=== PATIENT | male | born 1960 | race Caucasian/White ===

== ENCOUNTER 2018-01-28 15:37 | Emergency (ER) | payer MEDICAID ==
[~2018-01-28 15:37] MED LIST changes: -BACL-1 PO; -HYDR-385 PO; -PRED20TA6 PO
--- NOTE | 2018-01-28 15:48 | ER Report ---
History and Physical Time Seen By MD: 15:48 Hx. of Stated Complaint: Patient brought from [facility] for possible unresponsiveness. Patient brought by EMS. Responsive. Slow to answer questions. HPI/ROS CHIEF COMPLAINT: Slow response HISTORY OF PRESENT ILLNESS: 57-year-old male patient presents to emergency room with complaint of having slow response. Patient went to the [facility]. While he was there patient was very slow to respond to any questions. Most often he would answer yes no. Patient did complain of back pain according to the note that was faxed over from the clinic, however they were not able to get any other information. Patient here in the emergency room will answer yes no questions, he will watch as I move around. REVIEW OF SYSTEMS: Respiratory: No cough, no dyspnea. Cardiovascular: No chest pain, no palpitations. Gastrointestinal: No vomiting, no abdominal pain. Musculoskeletal: As noted above Allergies: Coded Allergies: No Known Drug Allergies (Unverified , 01/28/18) Home Meds Active Scripts Prednisone (PREDNISONE) 20 Mg Tablet, 40 MG PO DAILY, #8 TAB Prov:TOBY CAMP [facility] 01/28/18 Baclofen (BACLOFEN) 10 Mg Tablet, 10 MG PO TID, #20 TAB Prov:TOBY CAMP [facility] 01/28/18 Hydrocodone Bit/Acetaminophen (HYDROCODON-ACETAMINOPHEN 5-325) 1 Each Tablet, 1 EACH PO Q4-6H Y for PAIN, #12 TAB Prov:TOBY CAMP [facility] 01/28/18 Reported Medications Fluoxetine Hcl (PROZAC) 10 Mg Capsule, 10 MG PO QDAY, CAPSULE 08/14/17 Nicotine Polacrilex (NICOTINE GUM) 2 Mg Gum, 2 MG BC Q1-2H Y for NICOTINE REPLACEMENT, GUM 08/14/17 Multivits,Th W-Fe,Other Min (THERA-M) 1 Each Tablet, 1 EACH PO QDAY 08/14/17 Tiotropium [place] (SPIRIVA) 18 Mcg/Cap Inh, 18 MCG INH, INH 08/12/17 Simvastatin (SIMVASTATIN) 40 Mg Tablet, 40 MG PO HS, TAB ZOCOR 08/12/17 Hydroxyzine Hcl (HYDROXYZINE HCL) 25 Mg Tablet, 75 MG PO Y for INSOMNIA VISTARIL. TAKE NEEDED FOR INSOMNIA. 08/12/17 Lurasidone Hcl (LATUDA) 40 Mg Tablet, 40 MG PO TAKE DAILY AT 5 PM. TAKE WITH FOOD. 08/12/17 Past Medical/Surgical History Patient has a past medical history of hyperlipidemia, COPD, schizophrenia. Patient has no pertinent surgical history. Unable To Obtain Past Medical: Unable to Obtain/Update Reviewed Nurses Notes: Yes Hx Smoking: Yes Smoking Status: Current: Every Day Smoker Exposure to Second Hand Smoke?: Yes Hx Substance Use Disorder: No Hx Alcohol Use: No Constitutional Vital Sign - Last 24 Hours 01/28/18 01/28/18 01/28/18 01/28/18 15:38 15:45 16:00 16:15 Temp 97.6 Pulse 88 76 76 53 Resp 24 35 14 10 B/P (MAP) 125/106 113/97 (102) Pulse Ox 96 96 96 94 O2 Delivery Room Air 01/28/18 01/28/18 01/28/18 16:30 16:32 17:00 Pulse 59 49 Resp 16 14 B/P (MAP) 130/88 (102) 134/95 (108) Pulse Ox 97 97 O2 Flow Rate 2.0 Intake and Output 01/28/18 01/28/18 01/29/18 15:00 23:00 07:00 Intake Total 1700 ml Output Total 200 ml Balance 1500 ml Physical Exam General Appearance: The patient is alert, has no immediate need for airway protection and no current signs of toxicity. Respiratory: Chest is non tender, lungs are clear to auscultation. Cardiac: regular rate and rhythm Gastrointestinal: Abdomen is soft and non tender, no masses, bowel sounds normal. Musculoskeletal: Neck: Neck is supple and non tender. Extremities have full range of motion and are non tender. Back: Patient has tenderness in the low back, there is no bruising, pain seems radiate to the left hip. Skin: No rashes or lesions. Neuro: Patient is alert, difficult to ascertain his orientation as he is only answering yes no questions at this time. DIFFERENTIAL DIAGNOSIS: After history and physical exam differential diagnosis was considered for back pain with radiculopathy, psychosis, noncompliance with psych meds. Medical Decision Making Data Points Result Diagram: 01/28/18 1530 01/28/18 1530 Laboratory Hematology Test 01/28/18 15:30 01/28/18 16:14 01/28/18 17:39 Red Blood Count 5.72 M/uL (4.00-5.60) Mean Corpuscular Volume 85.4 fL (80.0-96.0) Mean Corpuscular Hemoglobin 29.8 pg (26.0-33.0) Mean Corpuscular Hemoglobin Concent 34.9 g/dL (32.0-36.0) Red Cell Distribution Width 13.9 % (11.5-14.5) Mean Platelet Volume 9.0 fL (7.2-11.1) Neutrophils (%) (Auto) 49.1 % (39.4-72.5) Lymphocytes (%) (Auto) 39.8 % (17.6-49.6) Monocytes (%) (Auto) 8.7 % (4.1-12.4) Eosinophils (%) (Auto) 1.5 % (0.4-6.7) Basophils (%) (Auto) 0.9 % (0.3-1.4) Nucleated RBC Relative Count (auto) 0.1 /100WBC Neutrophils # (Auto) 5.3 K/uL (2.0-7.4) Lymphocytes # (Auto) 4.3 K/uL (1.3-3.6) Monocytes # (Auto) 0.9 K/uL (0.3-1.0) Eosinophils # (Auto) 0.2 K/uL (0.0-0.5) Basophils # (Auto) 0.1 K/uL (0.0-0.1) Nucleated RBC Absolute Count (auto) 0.01 K/uL Sodium Level 143 mmol/L (137-145) Potassium Level 4.0 mmol/L (3.5-5.0) Chloride Level 106 mmol/L (98-107) Carbon Dioxide Level 21 mmol/L (22-30) Blood Urea Nitrogen 15 mg/dl (9-21) Creatinine 0.90 mg/dl (0.66-1.25) Glomerular Filtration Rate Calc > 60.0 Random Glucose 101 mg/dl (75-110) Calcium Level 10.5 mg/dl (8.4-10.2) Magnesium Level 2.2 mg/dl (1.7-2.2) Total Bilirubin 0.7 mg/dl (0.2-1.3) Aspartate Amino Transf (AST/SGOT) 42 U/L (0-35) Alanine Aminotransferase (ALT/SGPT) 52 U/L (0-56) Alkaline Phosphatase 67 U/L (0-126) Ammonia < 9 UMOL/L (9-33) Troponin I < 0.012 ng/ml Total Protein 8.6 gm/dl (6.3-8.2) Albumin 4.9 g/dl (3.5-5.0) Salicylates Level < 10 mg/L Salicylate Last Dose Date unk Acetaminophen Level < 10 ug/ml Serum Alcohol < 10 mg/dl Blood Gas Puncture Site Right radial Blood Gas Patient Temperature 97.6 DEGREES Arterial Blood pH 7.52 (7.35-7.45) Arterial Blood Partial Pressure CO2 < 25 mmHg (32-37) Arterial Blood Partial Pressure O2 60 mmHg (60-80) Arterial Blood HCO3 16 mmol/L (20-26) Arterial Blood Oxygen Saturation 94 % (92-100) Arterial Blood Base Excess -7.0 mmol/L Josh Test Acceptable Oxygen Liters/Minute Room air Urine Color Christen Urine Clarity Clear Urine pH 6.0 pH (4.8-9.5) Urine Specific [place] 1.031 Urine Protein 30 mg/dL (NEGATIVE) Urine Glucose (UA) Negative mg/dL (NEGATIVE) Urine Ketones 20 mg/dL (NEGATIVE) Urine Blood Negative (NEGATIVE) Urine Nitrite Negative (NEGATIVE) Urine Bilirubin Negative (NEGATIVE) Urine Urobilinogen 4.0 mg/dL (0.2-1.9) Urine Leukocyte Esterase Negative (NEGATIVE) Urine RBC 1 /HPF (0-2/HPF) Urine WBC 1 /HPF (0-5/HPF) Urine Squamous Epithelial Cells None /LPF (NONE-FEW) Urine Bacteria Negative /HPF (NONE-FEW) Urine Mucus None /HPF (NONE-FEW) Urine Opiates Screen Negative Urine Barbiturates Screen Negative Ur Tricyclic Antidepressants Screen Negative Urine Phencyclidine Screen Negative Urine Amphetamines Screen Negative Urine Benzodiazepines Screen Negative Urine Cocaine Screen Negative Urine Cannabinoids Screen Positive Chemistry Test 01/28/18 15:30 01/28/18 16:14 01/28/18 17:39 White Blood Count 10.7 k/uL (4.5-11.0) Red Blood Count 5.72 M/uL (4.00-5.60) Hemoglobin 17.0 g/dL (14.0-18.0) Hematocrit 48.8 % (42.0-52.0) Mean Corpuscular Volume 85.4 fL (80.0-96.0) Mean Corpuscular Hemoglobin 29.8 pg (26.0-33.0) Mean Corpuscular Hemoglobin Concent 34.9 g/dL (32.0-36.0) Red Cell Distribution Width 13.9 % (11.5-14.5) Platelet Count 408 K/uL (150-450) Mean Platelet Volume 9.0 fL (7.2-11.1) Neutrophils (%) (Auto) 49.1 % (39.4-72.5) Lymphocytes (%) (Auto) 39.8 % (17.6-49.6) Monocytes (%) (Auto) 8.7 % (4.1-12.4) Eosinophils (%) (Auto) 1.5 % (0.4-6.7) Basophils (%) (Auto) 0.9 % (0.3-1.4) Nucleated RBC Relative Count (auto) 0.1 /100WBC Neutrophils # (Auto) 5.3 K/uL (2.0-7.4) Lymphocytes # (Auto) 4.3 K/uL (1.3-3.6) Monocytes # (Auto) 0.9 K/uL (0.3-1.0) Eosinophils # (Auto) 0.2 K/uL (0.0-0.5) Basophils # (Auto) 0.1 K/uL (0.0-0.1) Nucleated RBC Absolute Count (auto) 0.01 K/uL Glomerular Filtration Rate Calc > 60.0 Calcium Level 10.5 mg/dl (8.4-10.2) Magnesium Level 2.2 mg/dl (1.7-2.2) Total Bilirubin 0.7 mg/dl (0.2-1.3) Aspartate Amino Transf (AST/SGOT) 42 U/L (0-35) Alanine Aminotransferase (ALT/SGPT) 52 U/L (0-56) Alkaline Phosphatase 67 U/L (0-126) Ammonia < 9 UMOL/L (9-33) Troponin I < 0.012 ng/ml Total Protein 8.6 gm/dl (6.3-8.2) Albumin 4.9 g/dl (3.5-5.0) Salicylates Level < 10 mg/L Salicylate Last Dose Date unk Acetaminophen Level < 10 ug/ml Serum Alcohol < 10 mg/dl Blood Gas Puncture Site Right radial Blood Gas Patient Temperature 97.6 DEGREES Arterial Blood pH 7.52 (7.35-7.45) Arterial Blood Partial Pressure CO2 < 25 mmHg (32-37) Arterial Blood Partial Pressure O2 60 mmHg (60-80) Arterial Blood HCO3 16 mmol/L (20-26) Arterial Blood Oxygen Saturation 94 % (92-100) Arterial Blood Base Excess -7.0 mmol/L Josh Test Acceptable Oxygen Liters/Minute Room air Urine Color Christen Urine Clarity Clear Urine pH 6.0 pH (4.8-9.5) Urine Specific [place] 1.031 Urine Protein 30 mg/dL (NEGATIVE) Urine Glucose (UA) Negative mg/dL (NEGATIVE) Urine Ketones 20 mg/dL (NEGATIVE) Urine Blood Negative (NEGATIVE) Urine Nitrite Negative (NEGATIVE) Urine Bilirubin Negative (NEGATIVE) Urine Urobilinogen 4.0 mg/dL (0.2-1.9) Urine Leukocyte Esterase Negative (NEGATIVE) Urine RBC 1 /HPF (0-2/HPF) Urine WBC 1 /HPF (0-5/HPF) Urine Squamous Epithelial Cells None /LPF (NONE-FEW) Urine Bacteria Negative /HPF (NONE-FEW) Urine Mucus None /HPF (NONE-FEW) Urine Opiates Screen Negative Urine Barbiturates Screen Negative Ur Tricyclic Antidepressants Screen Negative Urine Phencyclidine Screen Negative Urine Amphetamines Screen Negative Urine Benzodiazepines Screen Negative Urine Cocaine Screen Negative Urine Cannabinoids Screen Positive Toxicology Test 01/28/18 15:30 01/28/18 17:39 Salicylates Level < 10 mg/L Salicylate Last Dose Date unk Acetaminophen Level < 10 ug/ml Serum Alcohol < 10 mg/dl Urine Opiates Screen Negative Urine Barbiturates Screen Negative Ur Tricyclic Antidepressants Screen Negative Urine Phencyclidine Screen Negative Urine Amphetamines Screen Negative Urine Benzodiazepines Screen Negative Urine Cocaine Screen Negative Urine Cannabinoids Screen Positive Urinalysis Test 01/28/18 17:39 Urine Color Christen Urine Clarity Clear Urine pH 6.0 pH (4.8-9.5) Urine Specific [place] 1.031 Urine Protein 30 mg/dL (NEGATIVE) Urine Glucose (UA) Negative mg/dL (NEGATIVE) Urine Ketones 20 mg/dL (NEGATIVE) Urine Blood Negative (NEGATIVE) Urine Nitrite Negative (NEGATIVE) Urine Bilirubin Negative (NEGATIVE) Urine Urobilinogen 4.0 mg/dL (0.2-1.9) Urine Leukocyte Esterase Negative (NEGATIVE) Urine RBC 1 /HPF (0-2/HPF) Urine WBC 1 /HPF (0-5/HPF) Urine Squamous Epithelial Cells None /LPF (NONE-FEW) Urine Bacteria Negative /HPF (NONE-FEW) Urine Mucus None /HPF (NONE-FEW) EKG/Imaging Imaging EXAMINATION: CT HEAD WITHOUT CONTRAST COMPARISON: None available HISTORY: Altered mental status. PROCEDURE: Noncontrast CT from the vertex through the skull base. One of the following dose optimization techniques was utilized in the performance of this exam: Automated exposure control; adjustment of the mA and/or kV according to the patient's size; or use of an iterative reconstruction technique. Specific details can be referenced in the facility's radiology CT exam operational policy. FINDINGS: Brain volume: Age-appropriate. Hemorrhage/extra-axial fluid: None. Mass effect/midline shift/edema: None. Ischemia: Mejia-white differentiation is preserved. Ventricles and basal cisterns: Within normal limits. Posterior fossa: Negative. Vessels: Carotid atherosclerosis. Calvarium, skull base, and scalp: Negative. Visualized sinuses and orbits: Within normal limits. IMPRESSION: 1. No intracranial hemorrhage or mass effect. 2. No CT findings of acute ischemia. Report Dictated By: Alessandro Kapoor MD at 01/28/2018 4:59 PM Report E-Signed By: Alessandro Kapoor MD at 01/28/2018 5:03 PM ED Course/Re-evaluation ED Course Patient was admitted in exam room, history and physical were obtained. Differential diagnoses were considered. On examination patient was not responsive for anything more than yes or no questions. A CBC, CMP, urinalysis, drug screen, CT scan of the head were done. After those are done the results were unremarkable. Patient states that he was having significant pain to his back and left hip. X-rays ordered of the lumbar spine and left hip. After that the patient was still complaining of pain. He was given 4 mg of morphine IM. On reevaluation patient was interactive, he was talking. Patient states the reason he was not communicating initially was because he was having some much pain. Patient states his pain is significant better. We will go ahead and discharge him home at this time. With the x-rays of his back he does have significant degeneration at L6. I would like him to follow-up with Dr. Roman as this is apparently an acute exacerbation of chronic back pain. Patient will be treated with a limited supply of pain medication, muscle relaxer and steroid. Patient verbalized understanding and agreement with plan. Decision to Disposition Date: January 28, 2018 Decision to Disposition Time: 20:07 Depart Departure Latest Vital Signs Vital Signs Date Time Temp Pulse Resp B/P (MAP) Pulse Ox O2 Delivery O2 Flow Rate FiO2 01/28/18 17:00 49 14 134/95 (108) 97 01/28/18 16:32 2.0 01/28/18 15:38 97.6 Room Air Impression: Primary Impression: Back pain Condition: Improved Disposition: HOME OR SELF-CARE Referrals: STEPHEN BROWN MD (PCP) LEXI ROMAN MD New Scripts Prednisone (PREDNISONE) 20 Mg Tablet 40 MG PO DAILY, #8 TAB Prov: TOBY CAMP 01/28/18 Baclofen (BACLOFEN) 10 Mg Tablet 10 MG PO TID, #20 TAB Prov: TOBY CAMP 01/28/18 Hydrocodone Bit/Acetaminophen (HYDROCODON-ACETAMINOPHEN 5-325) 1 Each Tablet 1 EACH PO Q4-6H Y for PAIN, #12 TAB Prov: TOBY CAMP 01/28/18 Patient Instructions: Acute Low Back Pain (ED) Additional Instructions: Limit activity by pain. Alternate ice and heat. Follow up with Dr. Roman at [facility]. Increase low impact aerobic activity. Follow up with your primary care provider in the next 1-2 weeks. Problem Qualifiers Primary Impression: Back pain Back pain location: low back pain Chronicity: acute Back pain laterality: left Sciatica presence: with sciatica Sciatica laterality: sciatica of left side Qualified Codes: M54.42 - Lumbago with sciatica, left side TOBY CAMP January 28, 2018 15:48
[2018-01-28] MEDS ORDERED: NS(*) 0.9% 1000 ML BAG 1,000 ML IV ONE ×2 (15:57→17:35)
[2018-01-28 16:11] LABS: PLATELET COUNT, AUTOMATED 408 K/uL (150-450)
--- NOTE | 2018-01-28 16:16 | EKG ---
FACILITY: [facility] PATIENT NAME: MARISSA THORNE : [id number] MR: [id number] V: [id number] EXAM DATE: ORDERING PHYSICIAN: TOBY CAMP TECHNOLOGIST: JOSÉ Test Reason : AMS Blood Pressure : / mmHG Vent. Rate : 055 BPM Atrial Rate : 055 BPM P-R Int : 144 ms QRS Dur : 088 ms QT Int : 474 ms P-R-T Axes : 077 070 068 degrees QTc Int : 453 ms Sinus bradycardia Otherwise normal ECG No previous ECGs available Confirmed by CRIS LOCKETT ([id number]) on 01/28/2018 8:05:03 PM Referred By: CHRISTIANE Confirmed By:CRIS LOCKETT
[2018-01-28 17:00] VITALS: BP 134/95
--- NOTE | 2018-01-28 17:07 | RADIOLOGY IMAGING REPORT ---
FACILITY: [facility] PATIENT NAME: Rom Islas : 1960 MR: [id number] V: [id number] EXAM DATE: ORDERING PHYSICIAN: TOBY CAMP TECHNOLOGIST: Location: [facility] [place] Patient: Rom Islas : 1960 Visit/Account:[id number] Date of Sevice: 01/28/2018 EXAMINATION: CT HEAD WITHOUT CONTRAST COMPARISON: None available HISTORY: Altered mental status. PROCEDURE: Noncontrast CT from the vertex through the skull base. One of the following dose optimizat ion techniques was utilized in the performance of this exam: Automated exposure control; adjustment o f the mA and/or kV according to the patient's size; or use of an iterative reconstruction technique. Specific details can be referenced in the facility's radiology CT exam operational policy. FINDINGS: Brain volume: Age-appropriate. Hemorrhage/extra-axial fluid: None. Mass effect/midline shift/edema: None. Ischemia: Mejia-white differentiation is preserved. Ventricles and basal cisterns: Within normal limits. Posterior fossa: Negative. Vessels: Carotid atherosclerosis. Calvarium, skull base, and scalp: Negative. Visualized sinuses and orbits: Within normal limits. IMPRESSION: 1. No intracranial hemorrhage or mass effect. 2. No CT findings of acute ischemia. Report Dictated By: Alessandro Kapoor MD at 01/28/2018 4:59 PM Report E-Signed By: Alessandro Kapoor MD at 01/28/2018 5:03 PM WSN:[id number]
[2018-01-28] MEDS ORDERED: MORPHINE 4 MG/ML SDV IVP ONE (19:00)
[2018-01-28] MEDS ORDERED: MORPHINE 4 MG/ML SDV IV ONE (19:10)
--- NOTE | 2018-01-28 19:43 | RADIOLOGY IMAGING REPORT ---
FACILITY: [facility] - [place] PATIENT NAME: Rom Islas : 1960 MR: [id number] V: [id number] EXAM DATE: ORDERING PHYSICIAN: TOBY CAMP TECHNOLOGIST: Location: [facility] [place] Patient: Rom Islas : 1960 Visit/Account:[id number] Date of Sevice: 01/28/2018 EXAMINATION: Lumbar Spine 4 views HISTORY: Back pain. COMPARISON: None. FINDINGS: There are 6 nonrib-bearing lumbar-type vertebral segments. There is a mild convex-left lumbar curve, measuring less than 10 degrees, with apex at L3-L4. Multilevel spondylotic changes in the lumbar spine. There is severe disc space narrowing at the lumbosacral interspace, with grade 1-2 spondylolisthesis of L6 on S1 measuring approximately 10 mm. 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 Mild disc space narrowing at the L4-L5 and L5-L6 interspaces, mild multilevel degenerative endplate c hanges. No evidence of acute fracture or subluxation the lumbar spine. Vertebral body height is maintained. Vascular calcifications. IMPRESSION: 1. No acute osseous findings in the lumbar spine. 2. Likely bilateral spondylolysis at L6, with associated grade 1-2 spondylolisthesis of L6 on S1. 3. Mild degenerative changes at the other lumbar levels. 4. Mild convex-left lumbar curve. Report Dictated By: Otilio Medeiros MD at 01/28/2018 7:33 PM Report E-Signed By: Otilio Medeiros MD at 01/28/2018 7:40 PM WSN:[id number]
--- NOTE | 2018-01-28 19:45 | RADIOLOGY IMAGING REPORT ---
FACILITY: [facility] [place] PATIENT NAME: Rom Islas : 1960 MR: [id number] V: [id number] EXAM DATE: ORDERING PHYSICIAN: TOBY CAMP TECHNOLOGIST: [place] [facility] [place]: Rom Islas : 1960 Visit/Account:[id number] Date of Sevice: 01/28/2018 EXAMINATION: Left hip 2 views HISTORY: Back pain. COMPARISON: None. FINDINGS: Bones of the left hip demonstrate normal alignment. No evidence of fracture or dislocation. The joint space is preserved. Remainder of the bony pelvis appears radiographically intact. Normal mineralization. IMPRESSION: Negative left hip. Report Dictated By: Otilio Medeiros MD at 01/28/2018 7:40 PM Report E-Signed By: Otilio Medeiros MD at 01/28/2018 7:41 PM WSN:[id number]
[2018-01-28] MEDS ORDERED: predniSONE 20 MG TAB PO ONE (20:00)
[2018-01-28] MEDS ORDERED: BACLOFEN 10 MG TAB PO ONE (20:00)
[2018-01-28] MEDS ORDERED: ACET/HYDROC 5/325MG TH ER ONLY 2 TAB/BOTTLE PO ONE (20:00)
[2018-01-28] MEDS ORDERED: BACL-1 PO (20:06)
[2018-01-28] MEDS ORDERED: HYDR-385 PO (20:06)
[2018-01-28] MEDS ORDERED: PRED20TA6 PO (20:06)
== END 2018-01-28 20:17 | disposition home or self-care (01) ==
LOC: ER 15:42
DX: M54.42 Lumbago with sciatica, left side (principal); E78.5 Hyperlipidemia, unspecified; J44.9 Chronic obstructive pulmonary disease, unspecified
CPT/HCPCS: 36600; 70450; 72120; 73502; 80305; 81001; 82140; 82803; 83735; 84443; 84484; 85025; 93005; 96360; 96361; 99284; G0480; J2270; J7030; J7512; 80320; 80329; 82040; 82247; 82310; 82374; 82435; 82565; 82947; 84075; 84132; 84155; 84295; 84450; 84460; 84520

== ENCOUNTER → 2018-01-28 | Outpatient (CLI) | payer MEDICAID ==
[~2018-01-28] MED LIST: BACL-1 PO; FLUO-177 PO; FLUO-201 PO; HYDR-385 PO; HYDR-4225 PO; LURA40TA3 PO; MULT-1379 PO; NICO-306 BC; POTA20TA94 PO; PRED20TA6 PO; SIMV-54 PO; TIO18R INH
== END ==
LOC: AMB 15:17
PROVIDERS: ATTEND Nurse Practitioner
DX: R41.82 Altered mental status, unspecified (principal); M54.9 Dorsalgia, unspecified
CPT/HCPCS: A0425; A0427

== ENCOUNTER → 2018-10-07 | Outpatient (CLI) | payer MEDICAID ==
[~2018-10-07] MED LIST changes: +BACL-1 PO; +HYDR-385 PO; +PRED20TA6 PO
--- NOTE | 2018-10-07 15:28 | RADIOLOGY IMAGING REPORT ---
FACILITY: [facility] PATIENT NAME: Rom Islas : 1960 MR: [id number] V: [id number] EXAM DATE: ORDERING PHYSICIAN: ANNE GONZALES TECHNOLOGIST: Location: [facility] Patient: Rom Islas : 1960 Visit/Account:[id number] Date of Sevice: 10/07/2018 CT CHEST W/O CONTRAST History: Lung nodule seen on recent chest radiograph TECHNIQUE: Contiguous axial images were performed through the chest to the level of the adrenal gla nds. No IV contrast was administered. Coronal and sagittal reformatting was also performed.Dose Lower ing Technique One of the following dose optimization techniques was utilized in the performance of this exam: Autom ated exposure control; adjustment of the mA and/or kV according to the patient's size; or use of an i terative reconstruction technique. Specific details can be referenced in the facility's radiology C T exam operational policy. COMPARISON STUDIES: Two view chest September 16, 2018. Lungs / Pleura: There is a 1.8 x 1.2 x 2 cm spiculated mass in the lateral aspect of the right midd le lobe but in the adjacent pleural margin. There are numerous small noncalcified pulmonary nodules and spiculations scattered throughout the josh gs ranging in size up to 8 mm.. Mild emphysematous changes seen throughout the lungs. No evidence of pleural effusions Mediastinum/nodes: Mediastinum and hilar structures not ideally evaluated due to lack of intravenous contrast. There are small pretracheal precarinal subcarinal and AP window lymph nodes present all m easuring less than 1 cm horizontal short axis. Right hilum not ideally evaluated and a right hilar m ass/ node cannot be excluded Heart and vessels: Coronary artery calcifications Musculoskeletal / Body wall: There is a moderate compression fracture involving the super endplate of T7 Upper abdomen: Visualized abdominal viscera negative. IMPRESSION: Mild emphysematous changes seen throughout the lungs There is a 1.8 x 1.2 x 2 cm spiculated mass lateral aspect right middle lobe abutting the adjacent pl eural margin. This finding is concerning for malignancy. There are numerous small noncalcified pulm onary nodules and spiculations scattered throughout the lungs ranging in size up to 8 mm. These are concerning for metastases. Mediastinal structures not ideally evaluated given the lack of intravenou s contrast. A right hilar mass/lymph node cannot be totally excluded. Further evaluation with PET/C T recommended for further evaluation Moderate compression fracture involving the super endplate of T7 Report Dictated By: Abigail Gonzalez MD at 10/07/2018 3:08 PM Report E-Signed By: Abigail Gonzalez MD at 10/07/2018 3:24 PM LELANDN:[email or web address]
== END ==
LOC: CT 07:35
PROVIDERS: ATTEND Nurse Practitioner Family
DX: J43.9 Emphysema, unspecified (principal); R91.1 Solitary pulmonary nodule; R06.02 Shortness of breath
CPT/HCPCS: 71250

== ENCOUNTER 2018-10-21 16:35 | Outpatient (RCR) | payer MEDICAID ==
[~2018-10-21 16:35] MED LIST changes: +TRAZ150T8 PO
[2018-10-22] MEDS ORDERED: DICL-195 PO (17:28)
== END 2018-10-22 17:47 | disposition home or self-care (01) ==
LOC: ONC 16:35
PROVIDERS: ATTEND Internal Medicine Hematology
DX: Z02.9 Encounter for administrative examinations, unspecified (principal)

== ENCOUNTER → 2018-10-22 | Outpatient (CLI) | payer MEDICAID ==
[~2018-10-22] MED LIST changes: +DICL-195 PO
== END ==
LOC: AMB 13:30
PROVIDERS: ATTEND Nurse Practitioner
DX: R10.32 Left lower quadrant pain (principal); R55 Syncope and collapse; R53.1 Weakness
CPT/HCPCS: A0425; A0427

== ENCOUNTER → 2018-11-30 | Outpatient (CLI) | payer MEDICAID ==
[~2018-11-30] MED LIST changes: +DOCU100C49 PO
== END ==
LOC: MRI 06:54
PROVIDERS: ATTEND Internal Medicine Hematology
DX: Z02.9 Encounter for administrative examinations, unspecified (principal)

== ENCOUNTER → 2018-12-07 | Outpatient (CLI) | payer MEDICAID ==
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
== END ==
LOC: RAD 13:40
PROVIDERS: ATTEND Nurse Practitioner
DX: M20.11 Hallux valgus (acquired), right foot (principal); M19.071 Primary osteoarthritis, right ankle and foot

== ENCOUNTER 2019-01-18 08:00 | Outpatient (RCR) | payer MEDICAID ==
[2018-11-05 14:32] VITALS: BP 108/73
--- NOTE | 2018-11-05 21:38 | EL-[facility] ONCOLOGY NOTE ---
EVENT DATE: November 05, 2018 REFERRING PHYSICIAN Gracie Foss NP REASON FOR CONSULTATION Evaluation and management of pulmonary nodule. ONCOLOGY HISTORY Patient is a 58-year-old male with long-standing history of smoking over 40 years one pack a day who was found to have an irregular lung nodule in the right lung base on the August by chest x-ray. After that, he had a CT chest without contrast done on the September which showed 2 cm spiculated mass, right middle lobe, with numerous noncalcified pulmonary nodules scattered throughout the lungs, and the size was up to 8 mm. On the September, patient had a CT head without contrast, and it was negative for brain metastasis. On the September, he had a CT abdomen and pelvis which IV contrast which did not show any intra-abdominal malignancy or tumors. Patient denies any constitutional symptoms. PAST MEDICAL HISTORY Insignificant. PAST SURGICAL HISTORY 1. Right arm surgery. 2. Hernia repair x2. FAMILY HISTORY Brother had Hodgkin lymphoma, and father had small-cell lung cancer. SOCIAL HISTORY Patient is single with one son. He is currently on disability. He smokes one pack a day for 40 years. Denies any abuse of alcohol or illicit drugs. CURRENT MEDICATIONS 1. Trazodone 150 mg daily. 2. Hydroxyzine 75 mg as needed for insomnia. 3. Latuda 40 mg orally once a day. ALLERGIES No known drug allergies. REVIEW OF SYSTEMS CONSTITUTIONAL: No appetite or weight change. No fever, chills, or sweating. No recent infection. HEENT: Ears: No tinnitus or hearing problem. Nose: No nasal discharge or epistaxis. Throat: No sore throat or mouth ulcers. Eyes: No diplopia or visual changes. RESPIRATORY: No shortness of breath. He has cough and wheezing. No hemoptysis. CARDIOVASCULAR: No chest pain, orthopnea, or paroxysmal nocturnal dyspnea (PND). No edema. No palpitations. GASTROINTESTINAL: No nausea or vomiting. No diarrhea. He has constipation. No change in bowel movements. No heartburn or swallowing difficulties. No abdominal pain. No jaundice. No hematemesis, melena, or rectal bleeding. GENITOURINARY: No hematuria or dysuria. MUSCULOSKELETAL: He has pain along the left lateral chest wall. NEUROLOGICAL: No tingling or numbness in the hands or feet. No headaches or convulsions. HEMATOLOGIC/LYMPHATIC: No bleeding or easy bruising. No weakness or fatigue. No enlarged lymph nodes. SKIN: No skin rash or lumps. PSYCHIATRIC: No anxiety or depression. PHYSICAL EXAMINATION GENERAL: Looks stable. Well developed, well nourished, and in no acute distress. VITAL SIGNS: Blood pressure 108/73, pulse 71 per minute, respirations 16 per minute, temperature 97, pulse ox 91% on room air. HEENT: Head: Atraumatic. No sinus tenderness to palpation. Eyes: No icterus or conjunctivitis. Mouth and throat: No oral thrush or mucositis. NECK: Supple. No cervical or supraclavicular lymphadenopathy. LUNGS: Clear to auscultation and percussion bilaterally. HEART: Regular rate and rhythm. No gallops, murmurs, clicks, or rubs. ABDOMEN: Soft and lax. No tenderness. No hepatosplenomegaly. No masses. EXTREMITIES: No cyanosis, clubbing, or edema. LYMPHATICS: No peripheral lymphadenopathy. NEUROLOGICAL: Conscious, alert, and oriented times three. No focal motor or sensory deficits. PSYCHIATRIC: Mood and affect appear normal. SKIN: No skin rash, bruise, or purpuric eruption. ASSESSMENT Right middle lobe mass 2 cm, spiculated, with numerous noncalcified pulmonary nodules scattered throughout the lungs bilaterally up to 8 mm, suggestive of maybe a primary lung cancer especially with his history of smoking over 40 years one pack a day. I am planning to see the patient again in two weeks with a repeat CT chest with intravenous contrast and will see if any of those masses are enlarging. If this is the case, I am planning to do a CT-guided biopsy of one of those masses in the lung to know the pathological diagnosis. Further evaluation and management will depend on the result of that test. I explained that to the patient, and he is agreeable with the plan of management. PLAN 1. Continue followup. 2. Patient to return in two weeks with CBC, chem panel, and CT chest with intravenous contrast. 3. Patient to contact us for any new concerns or complaints. NATHANAEL
[2018-11-06 13:28] LABS: PLATELET COUNT, AUTOMATED 389 K/uL (150-450)
[2018-11-06 14:39] VITALS: BP 108/78
--- NOTE | 2018-11-06 15:21 | RADIOLOGY IMAGING REPORT ---
FACILITY: [facility] [place] PATIENT NAME: Rom Islas : 1960 MR: [id number] V: [id number] EXAM DATE: ORDERING PHYSICIAN: BRUCE WILLINGHAM TECHNOLOGIST: Location: [facility] [place] Patient: Rom Islas : 1960 Visit/Account:[id number] Date of Sevice: 11/06/2018 CT CHEST (CONTRAST) History: Lung mass/smoker TECHNIQUE: Contiguous axial images were performed through the chest to the level of the adrenal gla nds following the administration of IV contrast. Coronal and sagittal reformatting was also perform ed.Dose Lowering Technique One of the following dose optimization techniques was utilized in the performance of this exam: Autom ated exposure control; adjustment of the mA and/or kV according to the patient's size; or use of an i terative reconstruction technique. Specific details can be referenced in the facility's radiology C T exam operational policy. Contrast: 70 mL Isovue-370 COMPARISON STUDIES: October 07, 2018. Lungs / Pleura: The previously noted spiculated mass in the lateral aspect right middle lobe abutti ng the adjacent pleural margin is slightly increased in size now measuring 1.8 x 1.6 x 1.3 cm as oppo sed 1.8 x 1.2 x 1.2 cm Again noted are numerous small nodules and spiculations throughout both lungs. Some have remained st able and some have actually decreased in size. Mild emphysematous changes but the lungs There is no evidence of pleural effusions. Mediastinum/nodes: No pathologically enlarged hilar mediastinal lymph nodes are present Heart and vessels: There are coronary artery calcifications Musculoskeletal / Body wall: Moderate compression fracture T7 again seen Upper abdomen: Visualized abdominal viscera negative. IMPRESSION: The previously noted spiculated mass lateral aspect the right middle lobe is slightly increased in si ze now measuring 1.8 x 1.6 x 1.3 cm as opposed 1.8 x 1.2 x 1.2 cm this mass is concerning for neoplas m. Further evaluation with PET/CT or tissue diagnosis is recommended The numerous small nodules and spiculations throughout the lungs are again seen. Some have remained stable and some have actually decreased in size. These could be inflammatory in nature Moderate compression fracture of T7 Report Dictated By: Abigail Gonzalez MD at 11/06/2018 3:00 PM Report E-Signed By: Abigail Gonzalez MD at 11/06/2018 3:15 PM WSN:[email or web address]
--- NOTE | 2018-11-16 09:58 | NUR ---
KENTRELL notified pt that all the resources available are currently being utilized by other people and informed him that he may want to consider finding a taxi to get him to [place]. pt seemed agreeable to this suggestion and will make the call to line up the taxi himself.
[2018-11-18 13:21] VITALS: BP 117/74
[2018-11-18 13:27] LABS: PLATELET COUNT, AUTOMATED 342 K/uL (150-450)
[2018-11-18 13:36] LABS: INR 1.01
[2018-11-27 12:49] VITALS: BP 99/74
--- NOTE | 2018-11-28 10:51 | EL-TAR[facility] ONCOLOGY NOTE ---
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 CHIEF COMPLAINT Patient is here today for followup of his right middle lobe lung cancer. ONCOLOGY HISTORY Patient is a 58-year-old male with long-standing history of smoking over 40 years one pack a day who was found to have an irregular lung nodule in the right lung base on September 06, 2018 by chest x-ray. After that, he had a CT chest without contrast done on the September which showed 2 cm spiculated mass, right middle lobe, with numerous noncalcified pulmonary nodules scattered throughout the lungs, and the size was up to 8 mm. On October 22, 2018, patient had a CT head without contrast, and it was negative for brain metastasis. On October 22, 2018, he had a CT abdomen and pelvis which IV contrast which did not show any intra-abdominal malignancy or tumors. Patient denies any constitutional symptoms. Repeat CT chest done on November 06, 2018, showed increase in size of the right middle lobe mass from 1.8 x 1.2 x 1.2 to 1.8 x 1.6 x 1.3. The scattered nodules in the lung remain stable or decreased in size. There was also evidence of compression fracture of T7. On November 19, 2018, the patient had a CT-guided biopsy of the right middle lobe mass which came back positive for adenocarcinoma acinar pattern. PTL-1 was negative. HISTORY OF PRESENT ILLNESS Patient is here today for followup of his right middle lobe lung cancer. He is complaining of constipation and pain in the left arm after recent injury. He has also headache. He is weak, tired and fatigued. PAST MEDICAL HISTORY Insignificant. PAST SURGICAL HISTORY 1. Right arm surgery. 2. Hernia repair x2. FAMILY HISTORY Brother had Hodgkin lymphoma, and father had small-cell lung cancer. SOCIAL HISTORY Patient is single with one son. He is currently on disability. He smokes one pack a day for 40 years. Denies any abuse of alcohol or illicit drugs. CURRENT MEDICATIONS 1. Trazodone 150 mg daily. 2. Hydroxyzine 75 mg as needed for insomnia. 3. Latuda 40 mg orally once a day. ALLERGIES No known drug allergies. REVIEW OF SYSTEMS CONSTITUTIONAL: No appetite or weight change. No fever, chills, or sweating. No recent infection. HEENT: Ears: No tinnitus or hearing problem. Nose: No nasal discharge or epistaxis. Throat: No sore throat or mouth ulcers. Eyes: No diplopia or visual changes. RESPIRATORY: No shortness of breath. He has cough and wheezing. No hemoptysis. CARDIOVASCULAR: No chest pain, orthopnea, or paroxysmal nocturnal dyspnea (PND). No edema. No palpitations. GASTROINTESTINAL: He has constipation. GENITOURINARY: No hematuria or dysuria. MUSCULOSKELETAL: He has pain in the left arm after injury recently. NEUROLOGICAL: He has headache. HEMATOLOGIC/LYMPHATIC: He is weak, tired and fatigued. SKIN: No skin rash or lumps. PSYCHIATRIC: No anxiety or depression. PHYSICAL EXAMINATION GENERAL: Looks stable. Well developed, well nourished, and in no acute distress. VITAL SIGNS: Blood pressure 99/74, pulse 90 per minute, respirations 16 per minute, pulse ox 90% on room air. HEENT: Head: Atraumatic. No sinus tenderness to palpation. Eyes: No icterus or conjunctivitis. Mouth and throat: No oral thrush or mucositis. NECK: Supple. No cervical or supraclavicular lymphadenopathy. LUNGS: Clear to auscultation and percussion bilaterally. HEART: Regular rate and rhythm. No gallops, murmurs, clicks, or rubs. ABDOMEN: Soft and lax. No tenderness. No hepatosplenomegaly. No masses. EXTREMITIES: No cyanosis, clubbing, or edema. LYMPHATICS: No peripheral lymphadenopathy. NEUROLOGICAL: Conscious, alert, and oriented times three. No focal motor or sensory deficits. PSYCHIATRIC: Mood and affect appear normal. SKIN: No skin rash, bruise, or purpuric eruption. DIAGNOSTIC DATA CBC showed white count 9.9, hemoglobin 16, hematocrit 46.9, platelets 342,000. AST 43. CT chest done on November 06, 2018, showed increase in the size of the mass of the right middle lobe from 1.8 x 1.2 x 1.2 to 1.8 x 1.6 x 1.3. The scattered nodules in the lung cárdenas are either stable or decreased in size and there was also compression fracture of T7. CT-guided biopsy on November 19, 2018, came back positive for adenocarcinoma acinar type with negative PTL-1. ASSESSMENT Right middle lobe adenocarcinoma of the right lung. Lung mass was 2 cm, spiculated, with numerous noncalcified pulmonary nodules scattered throughout the lungs bilaterally up to 8 mm, suggestive of maybe primary lung cancer, especially with history of smoking over 40 years one pack a day. Repeat CT chest on November 06, 2018, did reveal increase in the size of the right middle lobe mass while the scattered nodules either remain stable in size or decreased in size besides the presence of compression fracture of T7. CT-guided biopsy of the the right middle lobe mass done on November 19, 2018, came back positive for adenocarcinoma acinar type with negative PTL-1. Because of the scattered nodules in the lungs, I am planning to get a PET CT scan for further evaluation. I am planning also to get an MRI of the brain with and without contrast to complete the staging. Based on the stage, we will decide about further management. If patient does not have any systemic disease then surgery versus definitive radiation therapy will be the plan of management. I explained that to the patient and patient is agreeable with the plan of management. PLAN 1. PET/CT scan. 2. MRI of the brain with and without contrast. 3. Patient to return after the above for further evaluation and management. 4. Patient to contact us for any new concerns or complaints. ANNED
--- NOTE | 2018-12-11 16:30 | NUR ---
Dr. Ponce from [facility] called to notify us that he found 6 non-displaced broken ribs on the pt's left side and a C1 fracture during the scan today. Pt called and notified. Stated "it makes sense now why I have been in so much pain." I recommended the patient go to the ER to be examined/treated. Pt prefers to wait to talk to primary doctor on Friday. Let pt know it would be best to be seen in ER today if at all possible, or if pain symptoms worsen or there are any changes to go to the ER and not wait until Friday.
[2018-12-17 14:34] VITALS: BP 102/71
--- NOTE | 2018-12-17 14:34 | NUR ---
Pt and his mother stopped by [facility] office today by referral of VILMA Poe. Pt did not make much eye contact or verbally engage during the appointment. However, his mother did ask several questions. His mother, Nora, was concerned about his food intake, which is reportedly hampered by his poorly fitted dentures. She stated she would like some assistance getting his dentures refitted so he could eat easier. KENTRELL suggested reaching out to Dr. Pisano at [facility] to get in for an appointment, since the last dentist he saw was in [place], when he lived there previously. Unfortunately Dr. Pisano's office is closed for this week (spring) and will reopen this coming friday. KENTRELL left a message with a request for a call back to schedule the patient. KENTRELL also suggested applying for the [facility] rapid response fund for assistance with this cost if [place] medicaid does not cover it. KENTRELL also questioned the pt if he was having difficulty getting rides with the [employer] bus. The pt stated he usually was able to take the bus, but did not have reliable transportation otherwise. The pt's mother indicated that as long as she is here and has a vehicle she is willing to transport him, herself. She added, her other son, also from [place], was visiting and had brought a car which he was debating on leaving with herself and the patient. However, he stated he was still undecided on this. At this time the patient states he does not know yet if his lung lesions are cancerous, however he will be finding out soon and he is anxious for this. KENTRELL will continue to wait for a call back from Dr. Pisano's office and pursue other financial and transportation assistance programs for the patient.
--- NOTE | 2018-12-17 15:55 | EL-TAR[facility] ONCOLOGY NOTE ---
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 CHIEF COMPLAINT Patient is here today for followup of his right middle lobe lung cancer. ONCOLOGY HISTORY Patient is a 58-year-old male with long-standing history of smoking over 40 years one pack a day who was found to have an irregular lung nodule in the right lung base on September 06, 2018, by chest x-ray. After that, he had a CT chest without contrast done on the September, which showed 2 cm spiculated mass, right middle lobe, with numerous noncalcified pulmonary nodules scattered throughout the lungs, and the size was up to 8 mm. On October 22, 2018, patient had a CT head without contrast, and it was negative for brain metastasis. On October 22, 2018, he had a CT abdomen and pelvis with IV contrast which did not show any intra-abdominal malignancy or tumors. Patient denies any constitutional symptoms. Repeat CT chest done on November 06, 2018, showed increase in size of the right middle lobe mass from 1.8 x 1.2 x 1.2 to 1.8 x 1.6 x 1.3. The scattered nodules in the lung remain stable or decreased in size. There was also evidence of compression fracture of T7. On November 19, 2018, the patient had a CT-guided biopsy of the right middle lobe mass which came back positive for adenocarcinoma acinar pattern. PDL-1 was negative. MRI of the brain done on the November came back negative for brain metastasis, and PET/CT scan done on the November showed 1.5 cm right middle lobe lung cancer with no evidence of glucose-active metastatic disease. The majority of the bilateral pulmonary micronodules seen on the prior CT chest September 2018 have resolved, although several small nodules persist. These are nonspecific and may be inflammatory or benign, although there were six subacute, nondisplaced left rib fractures after his recent fall. There was also fracture through C1, probably from the fall on the September. HISTORY OF PRESENT ILLNESS Patient is here today for followup of his right middle lobe lung cancer. He is complaining from pain in the musculoskeletal system from his recent fall, but other than that, he is doing fine. PAST MEDICAL HISTORY Insignificant. PAST SURGICAL HISTORY 1. Right arm surgery. 2. Hernia repair times two. FAMILY HISTORY Brother had Hodgkin lymphoma, and father had small-cell lung cancer. SOCIAL HISTORY Patient is single with one son. He is currently on disability. He smokes one pack a day for 40 years. Denies any abuse of alcohol or illicit drugs. CURRENT MEDICATIONS 1. Trazodone 150 mg daily. 2. Hydroxyzine 75 mg as needed for insomnia. 3. Latuda 40 mg orally once a day. ALLERGIES No known drug allergies. REVIEW OF SYSTEMS CONSTITUTIONAL: No appetite or weight change. No fever, chills, or sweating. No recent infection. HEENT: Ears: No tinnitus or hearing problem. Nose: No nasal discharge or epistaxis. Throat: No sore throat or mouth ulcers. Eyes: No diplopia or visual changes. RESPIRATORY: No shortness of breath. No cough, expectoration, or hemoptysis. CARDIOVASCULAR: No chest pain, orthopnea, or paroxysmal nocturnal dyspnea (PND). No edema. No palpitations. GASTROINTESTINAL: No nausea or vomiting. No diarrhea or constipation. No change in bowel movements. No heartburn or swallowing difficulties. No abdominal pain. No jaundice. No hematemesis, melena, or rectal bleeding. GENITOURINARY: No hematuria or dysuria. MUSCULOSKELETAL: Patient has generalized musculoskeletal pain after his recent fall. NEUROLOGICAL: No tingling or numbness in the hands or feet. No headaches or convulsions. HEMATOLOGIC/LYMPHATIC: No bleeding or easy bruising. No weakness or fatigue. No enlarged lymph nodes. SKIN: No skin rash or lumps. PSYCHIATRIC: No anxiety or depression. PHYSICAL EXAMINATION GENERAL: Looks stable. Well developed, well nourished, and in no acute distress. VITAL SIGNS: Blood pressure 102/71, pulse 63 per minute, respirations 16 per minute, temperature 97, pulse ox 95% on room air. HEENT: Head: Atraumatic. No sinus tenderness to palpation. Eyes: No icterus or conjunctivitis. Mouth and Throat: No oral thrush or mucositis. NECK: Supple. No cervical or supraclavicular lymphadenopathy. LUNGS: Clear to auscultation and percussion bilaterally. HEART: Regular rate and rhythm. No gallops, murmurs, clicks, or rubs. ABDOMEN: Soft and lax. No tenderness. No hepatosplenomegaly. No masses. EXTREMITIES: No cyanosis, clubbing, or edema. LYMPHATICS: No peripheral lymphadenopathy. NEUROLOGICAL: Conscious, alert, and oriented times three. No focal motor or sensory deficits. PSYCHIATRIC: Mood and affect appear normal. SKIN: No skin rash, bruise, or purpuric eruption. DIAGNOSTIC DATA CBC showed white count 9.9, hemoglobin 16, hematocrit 46.9, platelets 342,000. AST is 43. MRI brain November was negative for brain metastasis, while PET/CT scan done on the November did not show any systemic or regional metastasis. It showed 1.5 cm right lung cancer. ASSESSMENT Right middle lobe adenocarcinoma of the right lung. Lung mass was 2 cm, spiculated, with numerous noncalcified pulmonary nodules scattered throughout the lungs bilaterally up to 8 mm, suggestive of primary lung cancer, especially with the history of smoking over 40 years one pack a day. Repeat CT chest November 06, 2018, did reveal increase in the size of the right middle lobe mass while the scattered nodules remained stable in size or decreased in size besides the presence of compression fracture of T7. CT-guided biopsy of the the right middle lobe mass done on November 19, 2018, came back positive for adenocarcinoma, acinar type, with negative PDL-1. PET/CT scan done on the November did not reveal any systemic metastasis. It showed a 1.5 cm irregular mass in the right middle lobe which was metabolically active. No evidence of systemic metastasis or regional disease. The pulmonary nodules either disappeared or diminished in size. I am planning to refer the patient to a thoracic surgeon to consider resection of the right middle lobe mass and sampling lymph nodes. Further evaluation and management will depend on the result of the thoracic surgeon's evaluation and management. I am planning to bring the patient back two weeks back after his procedure to discuss about the further management. PLAN 1. Thoracic surgeon consultation. 2. Patient to return in two weeks after the thoracic surgeon's management. 3. I am planning to check his CBC, chem panel, and CEA when he comes back after his surgery. 4. Patient to contact us for any new concerns or complaints. NATHANAEL
--- NOTE | 2019-01-12 09:56 | NUR ---
KENTRELL heard back from the pt that he believes his inurance (medicaid) is going to pay to re-align his dentures. He doesn't believe at this time that further assistance is necessary. KENTRELL will remain available to pt as needs arise.
--- NOTE | 2019-01-13 14:20 | NUR ---
Finally able to get in contact with patient today regarding his pet scan and the finding of the C1 fracture. Patient states that he is having no symptoms related to this at all. He did tell me that he was seeing a chiropractor and I informed him to no longer do this, and also avoid "cracking" his neck as he states he does often. I spoke with the radiologist at [facility] as well as the surgeon, Dr. [place] the surgeon who is scheduled next week to operate on Mr. Islas. We will coordinate a MRI and CT scan at this time and they will call after workup complete.
--- NOTE | 2019-01-15 10:58 | RADIOLOGY IMAGING REPORT ---
FACILITY: [facility] [place] PATIENT NAME: Rom Islas : 1960 MR: [id number] V: [id number] EXAM DATE: ORDERING PHYSICIAN: BRUCE WLILINGHAM TECHNOLOGIST: Location: [facility] - [place] Patient: Rom Islas : 1960 Visit/Account:[id number] Date of Sevice: 01/15/2019 MR SPINE CERVICAL W/ & W/O CON COMPARISON: CT scan of the head dated October 22, 2018 Additional pertinent history: History of lung mass with C1 fracture. Technique: Multiplanar multisequence cervical spine MRI was performed with and without gadolinium enh ancement. CONTRAST: 15 ml of MultiHance. FINDINGS: Vertebral body height and alignment: Negative Vertebral marrow signal: Negative Vertebral bodies: Discontinuity seen along the left aspect of the anterior arch of C1 which from prev ious CT is compatible with an underlying fracture. Cervical spinal cord signal, craniocervical junction and visualized posterior fossa: Negative Surrounding soft tissues: Negative Inspection of the disc spaces reveal the following: C1-C2: Fracture involving the left anterior arch of C1. Otherwise negative C2-C3: Minimal circumferential disc bulging without significant canal or neural foraminal narrowing. C3-C4: Posterior broad-based disc protrusion with facet and uncovertebral degenerative changes. Ronda re left-sided neural foraminal narrowing. Moderate right-sided neural foraminal narrowing. Mild can al stenosis. C4-C5: Posterior broad-based disc protrusion with a superimposed right neural foraminal disc extrusio n with associated osteophyte formation. Severe right-sided neural foraminal narrowing. Moderate lef t-sided neural foraminal narrowing. No canal stenosis. C5-C6: Facet and uncovertebral degenerative changes without significant disc bulge or disc protrusion . Mild bilateral neural foraminal narrowing without canal stenosis. C6-C7: Posterior broad-based disc protrusion with facet and uncovertebral degenerative changes. Ronda re bilateral neural foraminal narrowing without canal stenosis. C7-T1: Posterior broad-based disc protrusion with facet hypertrophic changes. Mild bilateral neural foraminal narrowing without canal stenosis. Pathologic enhancement: Mild enhancement at the fracture site along the left anterior aspect of the arch of C1. Otherwise negative. Impression: 1. Findings again consistent with a fracture involving the left anterior arch of C1 with some enhanc ement within this region without a clearly definable mass noted. 2. Spondylitic change as discussed above. 3. No pathologic enhancement or other abnormality noted along the remaining aspects of the cervical spine or spinal cord. Report Dictated By: Brayden Neves MD at 01/15/2019 10:44 AM Report E-Signed By: Brayden Neves MD at 01/15/2019 10:53 AM WSN:[id number]
[~2019-01-18] VITALS: Ht 177.2 cm; Wt 74.3 kg
[~2019-01-18 08:00] MED LIST changes: +DEXTROSE 5%(*) 100 ML BAG 100 ML IVPB PRN; +GADOBENATE 529MG/1ML 15ML VIAL IVP ONE; +IOPAMIDOL 76% 150 ML INFUS BTL 150 ML ONE; +LIDOCAINE/SOD BICARB 8.4% SYR ID PRN; +NS(*) 0.9% 100 ML BAG 100 ML IVPB PRN; +NS(*) 0.9% 50 ML BAG 50 ML ONE
[2019-01-18 10:19] VITALS: BP 126/81
--- NOTE | 2019-01-18 13:34 | RADIOLOGY IMAGING REPORT ---
[place] [facility] [place] Rom Islas : 1960 MR: [id number] V: [id number] EXAM DATE: ORDERING PHYSICIAN: BRUCE WILLINGHAM TECHNOLOGIST: Location: [facility] Patient: Rom Islas : 1960 Visit/Account:[id number] Date of Sevice: 01/18/2019 EXAMINATION: CT neck without IV contrast CT neck with IV contrast HISTORY: Lung cancer. C1 fracture. TECHNIQUE: Axial CT of the neck without and with IV contrast. Sagittal and coronal reformats. One of the following dose optimization techniques was utilized in the performance of this exam: Autom ated exposure control; adjustment of the mA and/or kV according to the patient's size; or use of an i terative reconstruction technique. Specific details can be referenced in the facility's radiology C T exam operational policy. CONTRAST: 75 mL of IV [id number] COMPARISON: Cervical spine MRI dated 01/15/2019. Head CT dated 10/22/2018. FINDINGS: Masses/lesions: None. Airway: Negative. Lymph nodes: Negative. Vessels: Negative. Musculoskeletal / Body wall: Stable fracture of the left anterior arch of C1 with 8 mm of distraction . The right posterior C1 arch fracture appears chronic and may be a congenital anomaly. Multilevel degenerative disc disease and facet hypertrophy in the cervical spine. Visualized orbits / brain / paranasal sinuses: Leftward nasal septal deviation. Mild mucosal thicken ing in the left maxillary sinus. Upper chest: Centrilobular emphysema. IMPRESSION: 1. No suspicious mass, fluid collection, lymphadenopathy in the neck. 2. Stable left anterior C1 arch fracture with 8 mm of distraction. No definite mass associated with this fracture. The right posterior C1 arch fracture appears chronic and may be a congenital anomaly . Report Dictated By: Randy Salinas MD at 01/18/2019 1:19 PM Report E-Signed By: Randy Salinas MD at 01/18/2019 1:30 PM WSN:[id number]
== END 2019-02-02 ==
LOC: SPU 08:00
PROVIDERS: ATTEND Internal Medicine Hematology
DX: C34.2 Malignant neoplasm of middle lobe, bronchus or lung (principal); F17.210 Nicotine dependence, cigarettes, uncomplicated; S22.060A Wedge compression fracture of T7-T8 vertebra, initial encounter for closed fracture; R53.1 Weakness; R53.83 Other fatigue; K59.00 Constipation, unspecified
CPT/HCPCS: 36415; 70492; 71260; 82565; 85025; 85610; 85730; 99202; G0463; J7050; Q9967; 70553; 72156; 82040; 82247; 82310; 82374; 82435; 82947; 84075; 84132; 84155; 84295; 84450; 84460; 84520; 99212; A9577

== ENCOUNTER → 2019-01-27 | Outpatient (CLI) | payer MEDICAID ==
[~2019-01-27] MED LIST changes: -DEXTROSE 5%(*) 100 ML BAG 100 ML IVPB PRN; -GADOBENATE 529MG/1ML 15ML VIAL IVP ONE; -IOPAMIDOL 76% 150 ML INFUS BTL 150 ML ONE; -LIDOCAINE/SOD BICARB 8.4% SYR ID PRN; -NS(*) 0.9% 100 ML BAG 100 ML IVPB PRN; -NS(*) 0.9% 50 ML BAG 50 ML ONE
--- NOTE | 2019-01-27 15:34 | RADIOLOGY IMAGING REPORT ---
FACILITY: [facility] - [place] PATIENT NAME: Rom Islas : 1960 MR: [id number] V: [id number] EXAM DATE: ORDERING PHYSICIAN: DEBRA PEREZ TECHNOLOGIST: Location: [facility] - [place] Patient: Rom Islas : 1960 Visit/Account:[id number] Date of Sevice: 01/27/2019 Technique: CERVICAL SPINE MIN 4 VIEW HISTORY: Spondylosis Comparison studies: 01/15/2019 FINDINGS: C1 fracture is not conspicuous radiographically. There is intervertebral disc space narrow ing at C6-C7. 2 mm retrolisthesis of C6 on C7 is noted with extension. This partially reduces with flexion and neutral positioning. Also noted is 2 mm retrolisthesis of C3 on C4. This partially impr oves with flexion and is slightly worsened changed with extension. No abnormal motion C1-C2. IMPRESSION: 1. C1 fracture not visualized radiographically. No abnormal motion at this respective level. 2. Degenerative changes. Report Dictated By: Yassine Fernandez DO at 01/27/2019 3:26 PM Report E-Signed By: Yassine Fernandez DO at 01/27/2019 3:30 PM WSN:[id number]
--- NOTE | 2019-01-27 16:57 | RADIOLOGY IMAGING REPORT ---
[place]AC[place] [facility] [place]IENT NAME: Rom Islas : 1960 MR: [id number] V: [id number] EXAM DATE: ORDERING PHYSICIAN: DEBRA PEREZ TECHNOLOGIST: Location: [facility] - [place] Patient: Rom Islas : 1960 Visit/Account:[id number] Date of Sevice: 01/27/2019 EXAMINATION: CT Cervical spine without intravenous contrast HISTORY: Cervical spondylosis. COMPARISON: Cervical spine radiographs dated 01/27/2019. CT dated 01/18/2019. TECHNIQUE: Noncontrast axial CT of the cervical spine with sagittal and coronal reformats. One of the following dose optimization techniques was utilized in the performance of this exam: Autom ated exposure control; adjustment of the mA and/or kV according to the patient's size; or use of an i terative reconstruction technique. Specific details can be referenced in the facility's radiology C T exam operational policy. FINDINGS: Alignment: Normal. Cranio-cervical junction: Stable mildly distracted the left anterior C1 arch fracture. On these thin bone images the right posterior C1 arch fracture also appears to be recent and not a congenital anom maría. Mild degenerative changes in the atlantodental joint. Vertebral bodies: Negative. Posterior elements: Multilevel facet hypertrophy. Hardware: None. Disc Spaces: Multilevel degenerative disc disease. Soft tissues: Negative. Visualized upper chest: Emphysema in the upper lungs. IMPRESSION: 1. Stable mildly distracted the left anterior C1 arch fracture. On these thin bone images the right posterior C1 arch fracture also appears to be recent and not a congenital anomaly. 2. Multilevel degenerative disc disease and facet hypertrophy. Report Dictated By: Randy Salinas MD at 01/27/2019 4:49 PM Report E-Signed By: Randy Salinas MD at 01/27/2019 4:53 PM WSN:[id number]
== END ==
LOC: CT 12:29
PROVIDERS: ATTEND Neurological Surgery
DX: M43.02 Spondylolysis, cervical region (principal)
CPT/HCPCS: 72050; 72125

== ENCOUNTER → 2019-03-11 | Outpatient (CLI) | payer MEDICAID ==
[~2019-03-11] MED LIST changes: +REGADENOSON 0.4 MG/5 ML SYR ONE
--- NOTE | 2019-03-11 16:46 | RADIOLOGY IMAGING REPORT ---
FACILITY: [facility] PATIENT NAME: Rom Islas : 1960 MR: [id number] V: [id number] EXAM DATE: ORDERING PHYSICIAN: MARCOS HAN TECHNOLOGIST: Location: [facility] - [place] Patient: Rom Islas : 1960 Visit/Account:[id number] Date of Sevice: 03/11/2019 EXAMINATION: Single isotope SPECT imaging with regadenoson infusion and gated SPECT imaging. DATE OF EXAMINATION: 03/11/2019. DATE OF INTERPRETATION: 03/11/2019. REQUESTING PHYSICIAN: MARCOS HAN. INDICATION: The patient is a -year-old male evaluated for shortness of breath, left arm pain. PROCEDURE: After informed consent the patient received an intravenous injection of 12.4 mCi of Tc-99 m sestamibi followed at an appropriate time interval by rest imaging. The patient then subsequently received an intravenous infusion of 0.4 mg of regadenoson per protocol without complication. Resting heart rate was 54 bpm with a peak heart rate of 76 bpm. Blood pressure at rest was 112 / 79 and fol lowing infusion was 112 / 79. Baseline EKG demonstrates sinus rhythm. There were no EKG changes of ischemia following infusion. Symptoms were nonspecific. The patient then received an intravenous in jection of 29.5 mCi of Tc-99m sestamibi followed by stress imaging. RAW DATA: Examination of the summed raw data revealed a adequate quality study. There is increased t racer uptake in the GI tract which causes attenuation artifact. MYOCARDIAL PERFUSION: The tomographic images demonstrate a mild intensity, mild sized inferior defec t on rest and stress images. This resolves with prone imaging suggesting attenuation artifact. No tra nsient ischemic dilation. GATED IMAGES: The gated images demonstrate normal LVEF 67%, normal regional wall motion.. IMPRESSION: 1. Nondiagnostic pharmacologic stress ECG 2. Normal myocardial perfusion scan with attenuation artifact. No ischemia. 3. Normal LV systolic function; LVEF 67%. 4. Based on the results of this exam, the patient appears to be at low risk for future cardiovascular events. Report Dictated By: Jose Juan Owen at 03/11/2019 4:39 PM Report E-Signed By: Jose Juan Owen at 03/11/2019 4:42 PM WSN:[id number]
== END ==
LOC: NUC 00:56
PROVIDERS: ATTEND Internal Medicine
DX: R06.02 Shortness of breath (principal); M79.602 Pain in left arm
CPT/HCPCS: 78452; 93017; A9500; J2785

== ENCOUNTER → 2019-03-12 | Outpatient (CLI) | payer MEDICAID ==
[~2019-03-12] MED LIST changes: -REGADENOSON 0.4 MG/5 ML SYR ONE
--- NOTE | 2019-03-12 10:16 | RADIOLOGY IMAGING REPORT ---
FACILITY: [facility] PATIENT NAME: Rom Islas : 1960 MR: [id number] V: [id number] EXAM DATE: ORDERING PHYSICIAN: MARCOS HAN TECHNOLOGIST: Location: 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 Technique: Thin axial CT images were obtained through the chest without the injection of intravenous contrast. Coronal and sagittal reformations were then created. One of the following dose optimization techniques was utilized in the performance of this exam: Autom ated exposure control; adjustment of the mA and/or kV according to the patient's size; or use of an i terative reconstruction technique. Specific details can be referenced in the facility's radiology C T exam operational policy. Comparison: CT scan chest October, and several prior. Findings: Lower neck: Findings of a mass. Thyroid gland/mediastinum/hilum/lymph nodes:The thyroid gland is normal and there is no mediastinal o r hilar lymphadenopathy. Heart and pericardium: The heart size is normal. There is three-vessel coronary calcification. Lungs/pleura: There is significant hyperinflation of the lungs. There are prominent areas of lucency in the upper lung cárdenas bilaterally that are highly consistent with central lobar emphysema. Gianni rison the previous study shows a surgical suture line in the hilum related to a prior right middle lo bectomy. There is soft tissue density in the right miko related to surgery. Again, noted are numerous small nodular densities throughout the lung cárdenas bilaterally. The larges t nodule is located on axial image #70. It is not significantly different when compared to the prior study but its location is changes following right middle lobe resection. The etiology of the small nodules could represent interstitial lung disease or inflammation related to smoking. Bones/soft tissues: There is a stable compression fractures in mid thoracic spine. No lytic or scler otic bony lesions are noted. There are healing fractures involving ribs 7 through 11 on the left min e. They are minimally displacement, but do display periosteal reaction and mild sclerosis. Upper abdomen: On this noncontrast study no liver mass is seen. There are no gallstones in the gallb ladder so far as visualized. There is no finding of an adrenal lesion. There is no nephrolithiasis. There may be enlarged lymph nodes in the josue hepatis but they are difficult to define. IMPRESSION: 1. Status post right middle lobectomy for lesion in the lateral segment of the right middle lobe rep resenting adenocarcinoma. Surgical suture lines and soft tissue density are noted in the right miko. 2. Again noted are numerous small nodular densities throughout both lung cárdenas. They have been not ed in the past. There etiology is uncertain. 3. Extensive changes of central lobar emphysema with prominent pneumatocele in the right middle lobe . 4. Stable T7 vertebral body compression fracture. Healing rib fractures on the left side. Results were called to MARCOS HAN M.D. At 03/12/2019 10:10 AM. Report Dictated By: Pérez Clarke MD at 03/12/2019 9:06 AM Report E-Signed By: Pérez Clarke MD at 03/12/2019 10:10 AM LELANDN:[id number]
== END ==
LOC: CT 04:02
PROVIDERS: ATTEND Internal Medicine
DX: R06.02 Shortness of breath (principal)
CPT/HCPCS: 71250

== ENCOUNTER → 2019-05-21 | Outpatient (CLI) | payer MEDICAID | LOC: SPU 08:25 | PROVIDERS: ATTEND Nurse Practitioner Family | DX: Z02.9 Encounter for administrative examinations, unspecified (principal) ==